=== PATIENT | male | born 1995 | race Caucasian/White ===

== ENCOUNTER 2017-02-19 12:11 | Emergency (ER) | payer SELFPAY ==
[2017-02-19 12:34] VITALS: BP 120/73; PULSE 60; RESP 16; TEMP 98; O2SAT 100
--- NOTE | 2017-02-19 12:42 | ED PDOC ---
HPI: General Adult Time Seen by Provider: 02/19/17 12:37 Chief Complaint (Nursing): Male Genitourinary Chief Complaint (Provider): testicular pain History Per: Patient History/Exam Limitations: no limitations Additional Complaint(s): 21yo male complaining of right side testicular pain that began while at work at 0230 last night. Denies sexual activity but states he plays sports. Past Medical History Reviewed: Historical Data, Nursing Documentation, Vital Signs Vital Signs: Last Vital Signs Temp 98.0 F 02/19/17 12:31 Pulse 60 02/19/17 12:31 Resp 16 02/19/17 12:31 BP 120/73 02/19/17 12:31 Pulse Ox 100 02/19/17 15:07 - Medical History PMH: No Chronic Diseases - Surgical History Surgical History: No Surg Hx - Family History Family History: States: Unknown Family Hx - Social History Drugs: Denies - Home Medications Home Medications: Ambulatory Orders Medication Instructions Recorded Ciprofloxacin HCl [Cipro] 500 mg PO BID #20 tab 02/19/17 Naproxen [Naprosyn] 500 mg PO Q12H #20 tab 02/19/17 - Allergies Allergies/Adverse Reactions: Allergies Allergy/AdvReac Type Severity Reaction Status Date / Time No Known Allergies Allergy Verified 02/19/17 12:30 Review of Systems ROS Statement: Except As Marked, All Systems Reviewed And Found Negative Genitourinary Male: Positive for: Other (testicular pain) Physical Exam - Reviewed Nursing Documentation Reviewed: Yes - Physical Exam Appears: Positive for: Well, Non-toxic, No Acute Distress Head Exam: Positive for: ATRAUMATIC, NORMAL INSPECTION, NORMOCEPHALIC Skin: Positive for: Warm, Dry Respiratory: Negative for: Respiratory Distress Male Genital Exam: Positive for: testicular tenderness (R), other (normal orientation. no swelling or deformity. ) - ECG O2 Sat by Pulse Oximetry: 100 (RA) Pulse Ox Interpretation: Normal - Progress Re-evaluation Time: 15:05 Condition: Improved Medical Decision Making Medical Decision Makin US Testes ordered to rule out testicular torsion. Disposition - Clinical Impression Clinical Impression: Testicular pain - Patient ED Disposition Is Patient to be Admitted: No Counseled Patient/Family Regarding: Studies Performed, Diagnosis, Need For Followup, Rx Given - Disposition Referrals: Ingrid Crook MD [Medical Doctor] - Disposition: Routine/Home Disposition Time: 15:06 Condition: FAIR Prescriptions: Ciprofloxacin HCl [Cipro] 500 mg PO BID #20 tab Naproxen [Naprosyn] 500 mg PO Q12H #20 tab Instructions: Testicle Pain (ED) Additional Comments - Additional Comments Additional Comments: Scribe Attestation: Documented by Wei Espino acting as a scribe for Raudel Hilton MD. Provider Attestation: All medical record entries made by the Scribe were at my direction and personally dictated by me. I have reviewed the chart and agree that the record accurately reflects my personal performance of the history, physical exam, medical decision making, and the department course for this patient. I have also personally directed, reviewed, and agree with the discharge instructions and disposition.
--- NOTE | 2017-02-19 16:36 | US ---
HISTORY: Right-sided pain. Rule out torsion. TECHNIQUE: Real-time e sonography through the scrotum with color and doppler flow. COMPARISON: No prior FINDINGS: RIGHT TESTICLE: Measures 4.4 x 2.8 x 2.3 cm. Normal homogeneous echotexture and arterial flow RIGHT EPIDIDYMIS: Epididymal head measures 1.1 x 0.9 x 1.3 cm. Grossly unremarkable appearance with normal flow. LEFT TESTICLE: Measures 4.0 x 2.6 x 2.0 cm. Normal echotexture and flow. LEFT EPIDIDYMIS: Epididymal head measures 0.9 x 0.9 x 1.3 cm. Grossly unremarkable appearance with normal flow. HYDROCELE: None. VARICOCELE: Small left-sided varicocele. OTHER FINDINGS: Note that ultrasound of the perceived area at the level of the spermatic cord the demonstrate demonstrates no evidence of hydrocele of the spermatic cord or inguinal hernia. IMPRESSION: Small left-sided varicocele. . Note that perceived area of pain located at the right spermatic cord region shows no evidence hydrocele of the spermatic cord or inguinal hernia. Clinical correlation recommended.
== END 2017-02-19 15:58 | disposition home or self-care (01) ==
LOC: H.ER 12:11
DX: N50.819 Testicular pain, unspecified (principal)